=== PATIENT | female | born 1945 | race Caucasian/White ===

== ENCOUNTER 2017-11-18 13:52 | Emergency (ER) | payer OTHER, MEDICARE ==
[2017-11-18 14:06] VITALS: BP 158/65; PULSE 72; TEMP 98.1; BMI 22.1
[2017-11-18] MEDS ORDERED: ACETAMINOPHEN WITH CODEINE 300MG/30MG TABLET PO ONE (15:20)
[2017-11-18] MEDS ORDERED: ACETAMINOPHEN WITH CODEINE 300MG/30MG TABLET ONE (15:25)
--- NOTE | 2017-11-18 15:27 | PDOC ---
History of Present Illness - General Chief Complaint: Injury Stated Complaint: INJURY Time Seen by Provider: 11/18/17 14:10 - History of Present Illness Initial Comments: 72-year-old female reports the emergency room sent from urgent care with a ankle fracture. She is splinted in a posterior splint with the [place] shoe. She has an x-ray report this as a shaft of the fifth metatarsal fracture and a talus fracture after a fall 2 days ago. Since the fall is been no post injury nausea vomiting or visual changes. No headache. She did not hit her head. 11/18/17 15:24 Past History - Past Medical History Allergies/Adverse Reactions: Allergies Allergy/AdvReac Type Severity Reaction Status Date / Time No Known Allergies Allergy Verified 11/18/17 14:00 Home Medications: Ambulatory Orders Atorvastatin Ca 40 mg PO HS 12/29/14 Bupropion HCl [Wellbutrin Xl -] 150 mg PO DAILY 12/29/14 Cholecalciferol (Vitamin D3) [Vitamin D3] 5,000 unit PO DAILY 12/29/14 Clonazepam 0.5 mg PO DAILY 12/29/14 Gabapentin 100 mg PO PRN PRN 12/29/14 Cancer: Yes (ESOPHAGUS,POSS LARYNGEAL) COPD: Yes GI Disorders: Yes (DIVERTICULOSIS) - Surgical History Abdominal Surgery: Yes (HERNIA REPAIR W/MESH) GI Surgery: Yes (colon resection) - Immunization History Immunization Up to Date: No - Suicide/Smoking/Psychosocial Hx Smoking History: Current every day smoker Have you smoked in the past 12 months: Yes Number of Cigarettes Smoked Daily: 20 Information on smoking cessation initiated: No 'Breaking Loose' booklet given: 12/29/14 Hx Alcohol Use: Yes (SOCIAL) Drug/Substance Use Hx: No Review of Systems - Review of Systems Musculoskeletal: Yes: See HPI, Joint Pain *Physical Exam - Vital Signs Last Vital Signs Temp Pulse Resp BP Pulse Ox 98.1 F 72 18 158/65 97 11/18/17 14:02 11/18/17 14:02 11/18/17 14:02 11/18/17 14:02 11/18/17 14:02 - Physical Exam Comments: 11/18/17 15:25 Right lower extremity is splinted in a posterior splint and a hard sole shoe. She is neurovascularly intact. She moves her toes. ED Treatment Course - RADIOLOGY Radiology Studies Ordered: Category Date Time Status ANKLE-RIGHT [RAD] Stat Radiology 11/18/17 14:11 Completed Medical Decision Making - Medical Decision Making I do not appreciate a talus fracture there is a fifth metatarsal shaft fracture which is partially visualized on ankle radiograph. There are no gross sensorimotor deficits on her exam today. I will have her follow-up with orthopedic surgery. 11/18/17 15:25 *DC/Admit/Observation/Transfer Diagnosis at time of Disposition: Ankle fracture, Foot fracture - Discharge Dispostion Disposition: HOME Condition at time of disposition: Stable Decision to Admit order: No - Referrals Referrals: Gage Arroyo MD [Primary Care Provider] - William Bridges [Non Staff, Medical] - William Lee MD [Staff Physician] - - Patient Instructions Printed Discharge Instructions: Foot Fracture, DI for Foot Fracture, Ankle Fracture, DI for Ankle Fracture Additional Instructions: Remain nonweightbearing with the use of crutches and the splint. Follow-up with orthopedics in 2-3 days for further evaluation and treatment options. May take Tylenol and Motrin as directed for pain. Remain nonweightbearing. - Post Discharge Activity
== END 2017-11-18 15:35 | disposition home or self-care (01) ==
LOC: JERFT 13:52
DX: S92.351D Displaced fracture of fifth metatarsal bone, right foot, subsequent encounter for fracture with routine healing (principal); S92.101D Unspecified fracture of right talus, subsequent encounter for fracture with routine healing; W19.XXXD Unspecified fall, subsequent encounter
CPT/HCPCS: 73610-TC-RT-FY; 99281-25

== ENCOUNTER 2018-12-29 14:25 | Emergency (ER) | payer OTHER, MEDICARE ==
[2018-12-29 14:45] VITALS: BMI 23.0
--- NOTE | 2018-12-29 14:49 | PDOC ---
Rapid Medical Evaluation Time Seen by Provider: 12/29/18 14:41 Medical Evaluation: Allergies Allergy/AdvReac Type Severity Reaction Status Date / Time No Known Allergies Allergy Verified 11/18/17 14:00 12/29/18 14:44 Pt presents for evaluation of a hernia and skin wound to the abdomen. Pt sees Dr. Bruce for surgical consult. States she had a CTAP done today for evaluation of a possible hernia. Exam: Dressing applied to the abdomen with fresh blood noted. Orders: labs (pre-op) Pt to proceed to the ER for further evaluation
[2018-12-29 16:20] LABS: HEMATOCRIT 37.4 % (32.4-45.2); HEMOGLOBIN 12.3 GM/dL (10.7-15.3); LYMPH % 20.4 % (8-40); MCH 29.3 pg (25.7-33.7); MCHC 32.9 g/dl (32.0-36.0); MEAN CELL VOLUME 89.1 fl (80-96); MEAN PLT VOLUME 7.2 fl (7.5-11.1); MONO % 4.6 % (3.8-10.2); PLATELET COUNT 261 K/MM3 (134-434); RDW 15.1 % (11.6-15.6); WHITE BLOOD COUNT 6.6 K/mm3 (4.0-10.0)
[2018-12-29 16:24] LABS: INR 0.97 (0.83-1.09); PROTHROMBIN TIME (PATIENT) 11.4 SEC (9.7-13.0)
--- NOTE | 2018-12-29 17:00 | PDOC ---
History of Present Illness - General Chief Complaint: Wound Stated Complaint: WOUND Time Seen by Provider: 12/29/18 14:41 History Source: Patient Exam Limitations: No Limitations - History of Present Illness Travel History: No Initial Comments: 12/29/18 16:46 73-year-old female presents the emergency room with complaints of lower abdominal pain which she describes a burning sensation along with an open lower abdominal wound. Patient states area initially began as a raised mass last week and saw Dr. Bruce, surgeon for consideration of hernia. Patient states had umbilical hernia years ago which was repaired by Dr. Luis with mesh placement and removal of her umbilicus along with a tummy tuck. patient states since then the area has opened and now continues to bleed. Patient states had a CT of the abdomen done today also which was ordered last week by Dr. Bruce but patient states was unable to contact the surgeon since he is away this week. Timing/Duration: reports: getting worse Quality: reports: moderate, burning Abdominal Pain Onset Location: reports: periumbilical Pain Radiation: reports: no radiation Aggravating Factors: improves with: Movement Alleviating Factors: improves with: None Past History - Travel Traveled outside of the country in the last 30 days: No Close contact w/someone who was outside of country & ill: No - Past Medical History Allergies/Adverse Reactions: Allergies Allergy/AdvReac Type Severity Reaction Status Date / Time No Known Allergies Allergy Verified 12/29/18 14:49 Home Medications: Ambulatory Orders Atorvastatin Ca 40 mg PO HS 12/29/14 Bupropion HCl [Wellbutrin Xl -] 150 mg PO DAILY 12/29/14 Cholecalciferol (Vitamin D3) [Vitamin D3] 5,000 unit PO DAILY 12/29/14 Clonazepam 0.5 mg PO DAILY 12/29/14 Cancer: Yes (ESOPHAGUS,POSS LARYNGEAL) COPD: Yes GI Disorders: Yes (DIVERTICULOSIS) - Surgical History Abdominal Surgery: Yes (HERNIA REPAIR W/MESH) GI Surgery: Yes (colon resection) - Immunization History Immunization Up to Date: No - Psycho Social/Smoking Cessation Hx Smoking History: Never smoked Have you smoked in the past 12 months: Yes Number of Cigarettes Smoked Daily: 10 'Breaking Loose' booklet given: 12/29/14 Hx Alcohol Use: No Drug/Substance Use Hx: No Patient Lives Alone: No Review of Systems - Review of Systems Able to Perform ROS?: Yes Constitutional: No: Symptoms Reported Respiratory: No: Symptoms reported Cardiac (ROS): No: Symptoms Reported ABD/GI: Yes: See HPI : No: Symptoms Reported Musculoskeletal: No: Symptoms Reported Integumentary: Yes: See HPI Neurological: No: Symptoms reported Hematologic/Lymphatic: No: Symptoms Reported *Physical Exam - Vital Signs Last Vital Signs Temp Pulse Resp BP Pulse Ox 97.9 F 78 16 134/59 L 94 L 12/29/18 14:41 12/29/18 14:41 12/29/18 14:41 12/29/18 14:41 12/29/18 14:41 - Physical Exam General Appearance: Yes: Nourished, Appropriately Dressed. No: Apparent Distress HEENT: negative: Pale Conjunctivae Respiratory/Chest: positive: Lungs Clear, Normal Breath Sounds. negative: Respiratory Distress, Accessory Muscle Use Cardiovascular: positive: Regular Rhythm, Regular Rate. negative: Murmur Gastrointestinal/Abdominal: positive: Normal Bowel Sounds, Soft, Other (Noted 2 centimeter pink open wound over lower abdominal vertical healed incision. No visible bowel or mesh, surrounding skin tender. no active bleeding but noted bright red blood on gauze. Surrounding skin intact.) Musculoskeletal: negative: CVA Tenderness Extremity: positive: Normal Inspection Neurologic: positive: Motor Strength 5/5 (Ambulatory) ED Treatment Course - LABORATORY CBC & Chemistry Diagram: 12/29/18 15:58 12/29/18 15:58 - ADDITIONAL ORDERS Additional order review: Laboratory Results 12/29/18 15:58 PT with INR 11.40 INR 0.97 12/29/18 15:58 RBC 4.20 MCV 89.1 MCHC 32.9 RDW 15.1 MPV 7.2 L Neutrophils % 73.0 Lymphocytes % 20.4 Monocytes % 4.6 Eosinophils % 1.0 Basophils % 1.0 Medical Decision Making - Medical Decision Making 12/29/18 17:22 Chief complaint: Here for evaluation of open lower abdominal wound. Patient had CT of the abdomen today to rule out hernia. In the interim wound has opened up over the past 2 days and unable to contact the surgeon. No bowel complaints no complaints of fever /chills, or nausea exam: Vital signs stable. No physical symptoms or signs of incarcerated hernia surrounding skin semi-soft plan: Basic labs Awaiting CT report 12/29/18 18:24 Laboratory Tests 12/29/18 12/29/18 12/29/18 15:58 15:58 15:58 WBC 6.6 Hgb 12.3 Hct 37.4 MPV 7.2 L Neutrophils % 73.0 PT with INR 11.40 INR 0.97 Sodium 134 L Potassium 4.3 Chloride 103 Carbon Dioxide 26 Anion Gap 6 L BUN 21.5 H Creatinine 0.9 Random Glucose 85 Calcium 9.0 Total Bilirubin 0.4 AST 23 Alkaline Phosphatase 92 Patient made aware of pending CT results. Case discussed with Dr. Duque who states will read shortly 12/29/18 19:01 CT of the abdomen shows interval development of an approximate 19 x 8 x 5cm subcutaneous fluid collection seen at the level of the pelvis and lower abdomen centered along the midline. A small 1.3 x 0.7 component of this fluid collection appears to extend into the dermis along the level of the pelvis. Call placed to surgeon Dr. Bruce by 12/29/18 19:12 Case discussed with surgeon on-call Dr. Gaona who states patient should follow-up in the office on Saturday at [address] Diaz since her surgeon is on vacation until Saturday. Patient also aware if symptoms worsen to return to the ED. Discharge - Discharge Information Problems reviewed: Yes Clinical Impression/Diagnosis: Open abdominal wall wound Condition: Good Disposition: HOME - Follow up/Referral Referrals: Gage Arroyo MD [Primary Care Provider] - Krunal Bruce MD [Staff Physician] - - Patient Discharge Instructions Patient Printed Discharge Instructions: How to Change a Wet-to-dry Wound Dressing Additional Instructions: At this time I recommend cleaning with sterile water or sodium chloride then placing a nonstick bandage over as needed starting tomorrow. Otherwise follow-up with surgeon on Saturday at 2 PM as discussed. If you have any worsening symptoms including nausea vomiting severe bleeding and unable to defecate or fever please return to the ED sooner - Post Discharge Activity
[2018-12-29 17:11] LABS: ALBUMIN 3.2 g/dl (3.4-5.0); BILIRUBIN,TOTAL 0.4 mg/dL (0.2-1); BLOOD UREA NITROGEN 21.5 mg/dL (7-18); CREATININE 0.9 mg/dL (0.55-1.3); POTASSIUM 4.3 mmol/L (3.5-5.1); TOT PROT 6.4 g/dl (6.4-8.2)
[2018-12-29 18:49] VITALS: TEMP 99.5
[2018-12-29 20:49] VITALS: BP 128/73; PULSE 68
--- NOTE | 2018-12-30 09:56 | EKG ---
Test Reason : Blood Pressure : / mmHG Vent. Rate : 069 BPM Atrial Rate : 069 BPM P-R Int : 146 ms QRS Dur : 080 ms QT Int : 388 ms P-R-T Axes : 064 063 071 degrees QTc Int : 415 ms NORMAL SINUS RHYTHM NORMAL ECG WHEN COMPARED WITH ECG OF 27-NOV-2010 11:22, NO SIGNIFICANT CHANGE WAS FOUND Confirmed by MD LISANDRA, SPENSER ([id number]) on 12/30/2018 9:55:44 AM Referred By: Confirmed By:SPENSER FRY MD
== END 2018-12-29 20:00 | disposition home or self-care (01) ==
LOC: JER 14:25
DX: S31.105A Unspecified open wound of abdominal wall, periumbilic region without penetration into peritoneal cavity, initial encounter (principal); Z98.890 Other specified postprocedural states; J44.9 Chronic obstructive pulmonary disease, unspecified; Z85.01 Personal history of malignant neoplasm of esophagus; Z85.21 Personal history of malignant neoplasm of larynx; Z87.19 Personal history of other diseases of the digestive system
CPT/HCPCS: 36415; 80053; 85025; 85610; 86850; 86900; 86901; 93005; 93010; 99284-25

== ENCOUNTER 2019-01-23 16:09 | Emergency (ER) | payer MEDICARE, OTHER ==
[2019-01-23 16:33] VITALS: BP 156/82; PULSE 66; TEMP 98.1; BMI 23.0
--- NOTE | 2019-01-24 17:07 | PDOC ---
Documentation entered by Mark Preciado SCRIBE, acting as scribe for Isidro Irwin MD. Isidro Irwin MD: This documentation has been prepared by the rolandoibeOzzy Aiswarya, SCRIBE, under my direction and personally reviewed by me in its entirety. I confirm that the documentation accurately reflects all work, treatment, procedures, and medical decision making performed by me. History of Present Illness - General Chief Complaint: Wound Stated Complaint: ABDOMINAL WOUND History Source: Patient Exam Limitations: No Limitations - History of Present Illness Initial Comments: 01/23/19 17:05 The patient is a 73 year old female, with a significant PMH of hernia surgery in 2010, COPD, and diverticulosis, who presents to the emergency department for evaluation of abdominal wound at her hernia incision that began 1 month ago. The patient states she went to [facility] in [place] on regarding wound drainage where a CAT scan was done and found fluid in the wound. Patient was told to follow up with her primary care doctor. Patient comes in today complaining that wound seems infected and endorses associated symptoms of serosanguinous fluid. Patient states she uses a gauze over the incision and changes it twice a day. The patient denies chest pain, shortness of breath, headache and dizziness. Denies fever, chills, nausea, and vomiting. Denies any foul smelling and erythema. Allergies: NKDA Past surgical history: hernia repair with mesh and colon resection Social history: None reported PCP: Dina Almonte Past History - Past Medical History Allergies/Adverse Reactions: Allergies Allergy/AdvReac Type Severity Reaction Status Date / Time No Known Allergies Allergy Verified 01/23/19 16:10 Home Medications: Ambulatory Orders Atorvastatin Ca 40 mg PO HS 12/29/14 Cholecalciferol (Vitamin D3) [Vitamin D3] 5,000 unit PO DAILY 12/29/14 Clonazepam 0.5 mg PO PRN 12/29/14 Cancer: Yes (ESOPHAGUS,POSS LARYNGEAL) COPD: Yes GI Disorders: Yes (DIVERTICULOSIS) - Surgical History Abdominal Surgery: Yes (HERNIA REPAIR W/MESH) GI Surgery: Yes (colon resection) - Immunization History Immunization Up to Date: No - Psycho Social/Smoking Cessation Hx Smoking History: Never smoked Have you smoked in the past 12 months: Yes Number of Cigarettes Smoked Daily: 10 'Breaking Loose' booklet given: 12/29/14 Hx Alcohol Use: No Drug/Substance Use Hx: No Review of Systems - Review of Systems Able to Perform ROS?: Yes Comments:: 01/23/19 17:05 A complete review of 10 out of 10 review of systems is taken and is negative apart from what is previously mentioned below and in the HPI. *Physical Exam - Vital Signs Last Vital Signs Temp Pulse Resp BP Pulse Ox 98.1 F 66 18 156/82 100 01/23/19 16:10 01/23/19 16:10 01/23/19 16:10 01/23/19 16:10 01/23/19 16:10 - Physical Exam 01/23/19 17:13 Vitals: Triage Vital signs reviewed General Appearance: no acute distress, well nourished well developed, Abdomen: Soft, nondistended, normal bowel sounds, nontender to palpation Skin: +small 1 mm abdominal wound defect. No surrounding erythema or fluctuance with small amounts of serosanguinous discharge. Neuro: AOX3; Psych: normal mood, normal affect Medical Decision Making - Medical Decision Making 01/25/19 22:34 73 years old with known abdominal fluid collection status post documented a CAT scan 2 weeks ago presents ED with some serosanguineous discharge has appointment with her surgeon next week On examination ultrasound demonstrates a very small fluid collection drainage is clear serosanguineous nonpurulent there is no documented fever no cellulitis around the site no significant tenderness Findings, the need for follow-up and strict return instructions discussed with patient. Discharge - Discharge Information Problems reviewed: Yes Clinical Impression/Diagnosis: Wound drainage Condition: Stable Disposition: HOME - Admission No - Follow up/Referral Referrals: Gage Arroyo MD [Primary Care Provider] - Vincent Luis MD [Staff Physician] - - Patient Discharge Instructions Additional Instructions: Continue to change dressings as needed. Return to ED for fever severe abdominal pain or very foul-smelling infected discharge Follow-up with your surgeon next week return to ED for any concerns. - Post Discharge Activity
== END 2019-01-23 17:11 | disposition home or self-care (01) ==
LOC: FER 16:09
DX: T81.30XA Disruption of wound, unspecified, initial encounter (principal); Z87.891 Personal history of nicotine dependence; J44.9 Chronic obstructive pulmonary disease, unspecified; K57.92 Diverticulitis of intestine, part unspecified, without perforation or abscess without bleeding; Z85.01 Personal history of malignant neoplasm of esophagus
CPT/HCPCS: 99282-25

== ENCOUNTER 2021-10-04 06:27 | Inpatient (IN) | payer OTHER ==
[2021-09-29 13:16] VITALS: BMI 20.6
[2021-10-04] MEDS ORDERED: CEFAZOLIN SODIUM 2 GM in DEXTROSE 5%-WATER 100 ML IVPB ONE (07:00)
[2021-10-04] MEDS ORDERED: ceFAZolin SODIUM 1 GM VIAL ONE (07:00)
[2021-10-04] MEDS ORDERED: HEPARIN NA (PORCINE) 5,000 UNITS/ML 1ML VIAL ONE ×3 (07:07→09:47)
[2021-10-04] MEDS ORDERED: LIDOCAINE HCL 0.5%, 5 MG/ML (50mL SDVIAL) ONE (07:07)
[2021-10-04] MEDS ORDERED: LIDOCAINE HCL/PF 2% SDV 5ML VIAL ONE ×2 (07:28→07:42)
[2021-10-04] MEDS ORDERED: MIDAZOLAM HCL 2 MG/2 ML SINGLE DOSE VIAL ONE (07:28)
[2021-10-04] MEDS ORDERED: PROPOFOL 20 ML ONE (07:28)
[2021-10-04] MEDS ORDERED: ROCURONIUM BROMIDE 50 MG/5 ML SYRINGE ONE ×2 (07:28→09:26)
[2021-10-04] MEDS ORDERED: LIDOCAINE HCL 4% PRESERVE-FREE 5 ML AMP ONE (08:00)
[2021-10-04] MEDS ORDERED: GLYCOPYRROLATE 0.2 MG/1 ML VIAL ONE ×2 (08:08→10:27)
[2021-10-04] MEDS ORDERED: ceFAZolin SODIUM 1 GM VIAL IVPB ONE (08:50)
[2021-10-04] MEDS ORDERED: ONDANSETRON 4 MG/2 ML VIAL IVPUSH PRN (08:57)
[2021-10-04] MEDS ORDERED: oxyCODONE HCL 5 MG TABLET PO PRN (08:57)
[2021-10-04] MEDS ORDERED: LACTATED RINGERS SOLUTION 1,000 ML IV SCH (09:00)
[2021-10-04] MEDS ORDERED: PROTAMINE SULFATE 50 MG/5 ML VIAL ONE (10:14)
[2021-10-04] MEDS ORDERED: NEOSTIGMINE METHYLSULFATE 0.5 MG/ML - 10 ML MDV ONE (10:27)
[2021-10-04] MEDS ORDERED: ALBUTEROL SO4 0.083% IH SOL 2.5 MG/3 ML VIAL.NEB. NEB ONE ×3 (11:09→13:32)
[2021-10-04] MEDS ORDERED: ALBUTEROL SO4 2.5/IPRATROPIUM 0.5 INH SOL 3 ML VIAL.NEB. NEB ONE ×2 (11:13→13:31)
[2021-10-04] MEDS ORDERED: methylPREDNISolone NA SUCC 125 MG/2 ML VIAL IVPUSH ONE (11:15)
[2021-10-04] MEDS ORDERED: methylPREDNISolone NA SUCC 125 MG/2 ML VIAL ONE (11:19)
[2021-10-04] MEDS ORDERED: methylPREDNISolone NA SUCC 125 MG/2 ML VIAL IVPB ONE (11:20)
[2021-10-04] MEDS ORDERED: SODIUM CHLORIDE 1,000 ML IV SCH (11:45)
[2021-10-04] MEDS ORDERED: methylPREDNISolone NA SUCC 1000 MG/8 ML VIAL IVPB ONE (13:33)
[2021-10-04] MEDS ORDERED: LABETALOL HCL 5 MG/1 ML (100MG/20 ML VIAL) IVPUSH ONE (13:33)
[2021-10-04] MEDS ORDERED: clonazePAM 0.5 MG TABLET PO PRN (13:58)
[2021-10-04] MEDS: ALBUTEROL SO4 0.083% IH SOL 2.5 MG/3 ML VIAL.NEB. NEB SCH ×2 (16:00→20:46)
[2021-10-04] MEDS: LABETALOL HCL 5 MG/1 ML (100MG/20 ML VIAL) IVPUSH PRN (17:31)
[2021-10-04] MEDS: CEFAZOLIN 1 GM in DEXTROSE 5%-WATER - 50 ML IVPB SCH ×2 (18:01→18:02)
[2021-10-04 18:04] LABS: HEMOGLOBIN 12.2 GM/dL (10.7-15.3); MCHC 33.9 g/dl (32.0-36.0); MEAN CELL VOLUME 88.4 fl (80-96); MEAN PLT VOLUME 6.7 fl (7.5-11.1); PLATELET COUNT 193 10^3/uL (134-434); RBC 4.07 M/mm3 (3.60-5.2); RDW 15.2 % (11.6-15.6); WHITE BLOOD COUNT 5.7 K/mm3 (4.0-10.0)
[2021-10-04 19:10] LABS: ANISOCYTOSIS 0; HELMET CELLS 0; HOWELL-JOLLY BODIES 0; MACROCYTOSIS 0; OVALOCYTE 0; ROULEAU 0; SICKELED CELLS 0; TARGET CELLS 0; TEAR DROP CELLS 0; TOXIC GRANULATION 0
[2021-10-04] MEDS: ACETAMINOPHEN 500 MG TABLET (FP) PO SCH ×2 (19:10→21:23)
[2021-10-04] MEDS: MUPIROCIN 2% TOPICAL OINTMENT FOR DECOLONIZATION NS SCH (21:22)
[2021-10-04] MEDS: LEVOTHYROXINE NA 75 MCG TABLET (FP) PO SCH (21:23)
[2021-10-04] MEDS ORDERED: ATORVASTATIN CA 40 MG TABLET (FP) PO SCH (22:00)
[2021-10-04] MEDS ORDERED: LOSARTAN POTASSIUM 25 MG TABLET PO SCH (22:00)
[2021-10-04] MEDS ORDERED: ASPIRIN COATED 81 MG TABLET.EC PO SCH (22:00)
[2021-10-04] MEDS ORDERED: CHLORHEXIDINE GLUCONATE 4% CLEANSER FOR DECOLONIZATION TP SCH (22:00)
[2021-10-04] MEDS ORDERED: EZETIMIBE 10 MG TABLET (FP) PO SCH (22:00)
[2021-10-04] MEDS ORDERED: CLOPIDOGREL BISULFATE 75 MG TABLET (FP) PO SCH (22:00)
[2021-10-05] MEDS: ALBUTEROL SO4 0.083% IH SOL 2.5 MG/3 ML VIAL.NEB. NEB SCH ×6 (00:02→20:45)
[2021-10-05] MEDS: LABETALOL HCL 5 MG/1 ML (100MG/20 ML VIAL) IVPUSH PRN (02:21)
[2021-10-05] MEDS: LEVOTHYROXINE NA 75 MCG TABLET (FP) PO SCH (06:27)
[2021-10-05] MEDS: ACETAMINOPHEN 500 MG TABLET (FP) PO SCH (06:27)
[2021-10-05 08:31] LABS: BLOOD UREA NITROGEN 17.4 mg/dL (7-18); CALCIUM 8.7 mg/dL (8.5-10.1); CREATININE 0.8 mg/dL (0.55-1.3)
[2021-10-05 08:33] LABS: TOT PROT 5.6 g/dl (6.4-8.2)
[2021-10-05 08:34] LABS: BILIRUBIN,TOTAL 0.4 mg/dL (0.2-1)
[2021-10-05 08:35] LABS: ALBUMIN 2.8 g/dl (3.4-5.0)
[2021-10-05 08:49] LABS: BASO % 1.2 % (0-2.0); HEMATOCRIT 33.6 % (32.4-45.2); HEMOGLOBIN 11.3 GM/dL (10.7-15.3); LYMPH % 13.1 % (8-40); MCH 29.5 pg (25.7-33.7); MCHC 33.7 g/dl (32.0-36.0); MEAN CELL VOLUME 87.6 fl (80-96); MEAN PLT VOLUME 7.1 fl (7.5-11.1); MONO % 5.5 % (3.8-10.2); NEUT % 80.2 % (42.8-82.8); PLATELET COUNT 231 10^3/uL (134-434); RBC 3.83 M/mm3 (3.60-5.2); RDW 15.4 % (11.6-15.6); WHITE BLOOD COUNT 6.1 K/mm3 (4.0-10.0)
[2021-10-05] MEDS ORDERED: LOSARTAN POTASSIUM 25 MG TABLET PO ONE ×2 (10:28→22:00)
[2021-10-05] MEDS: MUPIROCIN 2% TOPICAL OINTMENT FOR DECOLONIZATION NS SCH (10:59)
[2021-10-05] MEDS ORDERED: clonazePAM 0.5 MG TABLET PO PRN (16:51)
[2021-10-05] MEDS ORDERED: oxyCODONE HCL 5 MG TABLET PO PRN (16:51)
[2021-10-05 17:02] VITALS: RESP 20
[2021-10-05] MEDS ORDERED: ACETAMINOPHEN 500 MG TABLET (FP) PO SCH (22:00)
[2021-10-05] MEDS ORDERED: ATORVASTATIN CA 40 MG TABLET (FP) PO SCH (22:00)
[2021-10-05] MEDS ORDERED: ASPIRIN COATED 81 MG TABLET.EC PO SCH (22:00)
[2021-10-05] MEDS ORDERED: EZETIMIBE 10 MG TABLET (FP) PO SCH (22:00)
[2021-10-05] MEDS ORDERED: CLOPIDOGREL BISULFATE 75 MG TABLET (FP) PO SCH (22:00)
[2021-10-06] MEDS: ALBUTEROL SO4 0.083% IH SOL 2.5 MG/3 ML VIAL.NEB. NEB SCH ×5 (04:00→15:53)
[2021-10-06] MEDS ORDERED: LEVOTHYROXINE NA 75 MCG TABLET (FP) PO SCH (06:00)
[2021-10-06 16:05] VITALS: BP 142/55; PULSE 84; TEMP 97.6
[2021-10-06] MEDS ORDERED: LOSARTAN POTASSIUM 25 MG TABLET PO SCH ×2 (22:00)
== END 2021-10-06 16:35 | disposition home or self-care (01) | DRG 36 ==
LOC: J2C 06:27 → JICU 15:17 → J8W 10-05 16:29
PROVIDERS: ADMIT Surgery; ATTEND Surgery
PROC: 037J0DZ Dilation of Left Common Carotid Artery with Intraluminal Device, Open Approach (ICD-10-PCS; principal; 2021-10-04 08:00)
DX: I65.22 Occlusion and stenosis of left carotid artery (principal); J44.9 Chronic obstructive pulmonary disease, unspecified; K57.90 Diverticulosis of intestine, part unspecified, without perforation or abscess without bleeding; E03.9 Hypothyroidism, unspecified; F17.210 Nicotine dependence, cigarettes, uncomplicated; E78.5 Hyperlipidemia, unspecified; I97.3 Postprocedural hypertension; S10.83XA Contusion of other specified part of neck, initial encounter; X58.XXXA Exposure to other specified factors, initial encounter; Y93.9 Activity, unspecified; Y92.9 Unspecified place or not applicable; Y83.8 Other surgical procedures as the cause of abnormal reaction of the patient, or of later complication, without mention of misadventure at the time of the procedure; Z85.21 Personal history of malignant neoplasm of larynx
CPT/HCPCS: 36415; 71045-TC-FY; 76000-TC-FY; 80053; 85025; 85027; 86922; 94640; 94760; 97116-GP; 97162-GP; J1644